=== PATIENT | female | born 1970 | race Caucasian/White ===

== ENCOUNTER 2019-04-13 10:37 | Emergency (ER) | payer MEDICAID ==
[~2019-04-13] VITALS: Ht 162 cm; Wt 93.7 kg
[~2019-04-13 10:37] MED LIST: ACHD5005 PO; AMOX500C2 PO; BENZ100C18 PO; CLIN-62 PO; CLOT45CR46 TOP; FERR-57 PO; FLC150T PO; GLIP-173; HCT25T PO; HUM100VI SC; INSU100V13 SC; LIRA0.6P SC; LIRA0.6P SQ; LISI1TAB26; MECL-124 PO; METH4TAB PO; METR500T PO; MPR22TI TP; MTF500T PO; NALT1TAB; NAPR-243 PO; NITR-65 PO; ONDAN4ODT PO; OXYC-12 PO; PHEN37.53 PO; PREN1TAB14 PO; PREN1TAB39 PO; PRM50SU RC; PROM25TA14 PO; SULF1TAB7 PO; TERB250T42 PO
--- NOTE | 2019-04-13 11:23 | ED Fall/Injury ---
General Chief Complaint: Trauma-Non Activation Stated Complaint: R KNEE PAIN AND L WRIST PAIN AFTER FALL Nursing Triage Note: STATES AROUND 5 AM SHE FELL TAKING HER DOG OUT. COMPLAINS OF RIGHT KNEE AND LEFT WRIST PAIN. Source: patient Exam Limitations: no limitations History of Present Illness Date Seen by Provider: Apr 13, 2019 Time Seen by Provider: 11:10 Initial Comments Ambulatory in to ER with reports of right anterior knee pain and left wrist pain after a fall this morning while taking that. No other injuries she does have bruising and pain to the wrist and knee. Occurred: this morning Severity: moderate Injuries/Pain Location: upper extremity, lower extremity Context: unknown Loss of Consciousness: no loss of consciousness Allergies and Home Medications Allergies Coded Allergies: NKANo Known Allergies (Unverified Allergy, Unknown, 06/14/05) Home Medications Metformin Hcl 500 Mg Tablet, 1 EACH PO BID WITH MEALS, (Reported) Promethazine HCl 25 Mg Tablet, 25 MG PO Q6H PRN for NAUSEA/VOMITING Prescribed by: PERRI MEDINA on 03/24/16 1621 Patient Home Medication List Home Medication List Reviewed: Yes Review of Systems Review of Systems Constitutional: see HPI Eyes: No Symptoms Reported Ears, Nose, Mouth, Throat: no symptoms reported Respiratory: no symptoms reported Cardiovascular: no symptoms reported Genitourinary: no symptoms reported Musculoskeletal: see HPI Skin: no symptoms reported Psychiatric/Neurological: No Symptoms Reported Past Areaxtq-Jkzfoe-Cgoqgu Hx Patient Social History Alcohol Use: Denies Use Recreational Drug Use: No Smoking Status: Never a Smoker Recent Foreign Travel: No Contact w/Someone Who Travel: No Recent Infectious Disease Expo: No Recent Hopitalizations: No Past Medical History Surgeries: Yes (FAT TISSUE REMOVAL R SIDE 2000, 3 C-SECTIONS) Section Respiratory: No Cardiac: Yes Hypertension Neurological: No Reproductive Disorders: No Sexually Transmitted Disease: No HIV/AIDS: No Gastrointestinal: No Musculoskeletal: No Endocrine: Yes Diabetes, Non-Insulin dep Cancer: No Psychosocial: No Integumentary: No Blood Disorders: No Physical Exam Vital Signs Vital Signs - First Documented 04/13/19 11:05 Temp 37.0 Pulse 77 Resp 16 B/P (MAP) 110/77 (88) Pulse Ox 99 O2 Delivery Room Air Capillary Refill : Less Than 3 Seconds Height, Weight, BMI Height: 5'6" Weight: 239lbs. oz. [id number]; 35.00 BMI Method:Stated General Appearance: WD/WN, no apparent distress HEENT: PERRL/EOMI, normal ENT inspection Neck: non-tender Respiratory: no respiratory distress, no accessory muscle use Gastrointestinal: normal bowel sounds, soft Extremities: normal range of motion, other (bruising to volar left wrist, half dollar sized bruising right anterior knee. ) Neurologic/Psychiatric: alert, normal mood/affect, oriented x 3 Skin: normal color, warm/dry [place] Coma Score Best Eye Response: (4) Open Spontaneously Best Verbal Response: (5) Oriented Best Motor Response: (6) Obeys Commands Tangela Total: 15 Progress/Results/Core Measures Results/Orders My Orders Orders - RHONA GONZALEZ APRN Knee, Right, 3 Views (04/13/19 11:19) Wrist, Left, 3 Views Or More (04/13/19 11:19) Vital Signs/I&O 04/13/19 11:05 Temp 37.0 Pulse 77 Resp 16 B/P (MAP) 110/77 (88) Pulse Ox 99 O2 Delivery Room Air Blood Pressure Mean: 88 Departure Impression Primary Impression: Contusion Disposition: 01 HOME, SELF-CARE Condition: Stable Departure-Patient Inst. Decision time for Depature: 11:41 Referrals: [facility] (PCP/Family) Primary Care Physician Patient Instructions: Contusion (DC) Add. Discharge Instructions: 1. Return to ER for any concerns such as increasing pain or fevers. Follow up with your doctor next week. tylenol and motrin for pain. All discharge instructions reviewed with patient and/or family. Voiced understanding. RHONA GONZALEZ APRN Apr 13, 2019 11:23
--- NOTE | 2019-04-13 11:36 | Diagnostic Imaging Report ---
INDICATION: Pain post fall earlier today. TECHNIQUE: 3 views of the right knee CORRELATION STUDY: None FINDINGS: The joint spaces are maintained. The articular surfaces are smooth and preserved. There is no acute bony abnormality. There is presence mild amount of edema along the anterior aspect of the knee. IMPRESSION: 1. Negative for acute bony abnormality of the knee. Dictated by: Dictated on workstation # [id number]
--- NOTE | 2019-04-13 11:36 | Diagnostic Imaging Report ---
INDICATION: Fall earlier today with pain and bruising. History of previous fracture left wrist. TECHNIQUE: 3 views of the left wrist CORRELATION STUDY: Left hand, 12/25/2009 FINDINGS: The osseous structures of the wrist have an unremarkable appearance. Alignment is anatomic. There is no acute bony abnormality. The visualized soft tissues appearing unremarkable. IMPRESSION: 1. Negative examination of the wrist. Dictated by: Dictated on workstation # [id number]
[2019-04-13 11:52] VITALS: BP 110/77
== END 2019-04-13 11:52 | disposition home or self-care (01) ==
LOC: EDUNIT# 10:37 → ER 10:38
DX: S60.212A Contusion of left wrist, initial encounter (principal); S80.01XA Contusion of right knee, initial encounter; I10 Essential (primary) hypertension; E11.9 Type 2 diabetes mellitus without complications; R40.2142 Coma scale, eyes open, spontaneous, at arrival to emergency department; R40.2252 Coma scale, best verbal response, oriented, at arrival to emergency department; R40.2362 Coma scale, best motor response, obeys commands, at arrival to emergency department; Z79.84 Long term (current) use of oral hypoglycemic drugs; W19.XXXA Unspecified fall, initial encounter
CPT/HCPCS: 73110; 73562

== ENCOUNTER → 2019-06-14 | Outpatient (CLI) | payer MEDICAID ==
--- NOTE | 2019-06-14 10:42 | Diagnostic Imaging Report ---
PROCEDURE: US Non-ob pelvis comp/trans. TECHNIQUE: Multiple realtime grayscale images were obtained of the pelvis in various projections transabdominally and endovaginally. Transabdominal imaging was also performed. INDICATION: Abnormal uterine bleeding. COMPARISON: None FINDINGS: The uterus is normal in size measuring 8.8 x 5.1 x 5.4 cm. The endometrium measures 9 mm in thickness. There is a somewhat circumscribed hypoechoic area in the anterior myometrium measuring 2.7 x 2.6 x 2.7 cm which may represent a fibroid. Multiple nabothian cysts are present. No masses are seen in the adnexa bilaterally. The ovaries are not seen due to bowel gas. IMPRESSION: 1. Circumscribed hypoechoic region in the uterus measuring 2.7 cm, may represent a fibroid. 2. The endometrium is within normal limits for a premenopausal female. 3. The ovaries are not seen. Dictated by: Dictated on workstation # [id number]
--- NOTE | 2019-06-14 16:27 | Diagnostic Imaging Report ---
INDICATION: Routine screening. COMPARISON: No prior mammograms are available for comparison. 2-D and 3-D bilateral screening mammography was performed. The current study was also evaluated with a Computer Aided Detection (CAD) system. 3-D tomosynthesis was also performed and reviewed. FINDINGS: Both breasts are heterogeneously dense, limiting the sensitivity of mammography. There is a focal density in the central left breast on the CC view at the nipple line. Additional views of this area is recommended. This appears to be superiorly located on the MLO views. Right breast is unremarkable. No malignant-appearing microcalcifications are seen. Axillae are unremarkable. IMPRESSION: Left breast density. Additional views are recommended for further evaluation. ACR BI-RADS Category 0: Incomplete. (Needs additional imaging evaluation). Result letter will be mailed to the patient. Note: At least 10% of breast cancer is not imaged by mammography. Dictated by: Dictated on workstation # [id number]
== END ==
LOC: RAD 09:22
PROVIDERS: ATTEND Obstetrics & Gynecology
DX: Z12.31 Encounter for screening mammogram for malignant neoplasm of breast (principal); R92.8 Other abnormal and inconclusive findings on diagnostic imaging of breast; N93.8 Other specified abnormal uterine and vaginal bleeding; Z68.34 Body mass index [BMI] 34.0-34.9, adult; N88.8 Other specified noninflammatory disorders of cervix uteri
CPT/HCPCS: 76830; 76856; 77067

== ENCOUNTER → 2019-06-26 | Outpatient (CLI) | payer MEDICAID ==
--- NOTE | 2019-06-26 14:11 | Diagnostic Imaging Report ---
INDICATION: Left breast density. Patient presents for additional views. Correlation is made with recent screening study from 06/14/2019. Unilateral left 2-D and 3-D diagnostic mammography was performed with CAD. This include spot compression CC, rolled CC and 90 degree lateral views. Additional views fail to demonstrate a discrete mass. There is some mild residual density in the central left breast approximately 10 cm from the nipple. This appears to be superiorly located on the CC tomographic images and the 90 degree lateral view. No suspicious calcifications are seen. IMPRESSION: BI-RADS 0 Mild residual density in the central left breast superiorly. Further evaluation of the left breast with ultrasound is recommended and will be performed today. ACR BI-RADS Category 0: Incomplete. (Needs additional imaging evaluation). Result letter will be mailed to the patient. Note: At least 10% of breast cancer is not imaged by mammography. Dictated by: Dictated on workstation # [id number]
--- NOTE | 2019-06-26 14:45 | Diagnostic Imaging Report ---
INDICATION: Right breast density. Correlation is made with diagnostic mammogram earlier the same day and screening mammogram from 06/14/2019. Sonographic interrogation of the upper right breast 10-2 o'clock location was performed. There is a echogenic circumscribed nodule in the subcutaneous tissues at the 10:00 location measuring approximately 7 mm x 9 mm most consistent with a lipoma. No other concerning finding is seen. No mass or fluid collection is seen. IMPRESSION: BI-RADS 2 Probable small lipoma at the 10:00 location of the right breast 8 cm from the nipple. No suspicious abnormality is detected. Patient may return to routine annual screening mammography. ACR BI-RADS Category 2: Benign findings. Dictated by: Dictated on workstation # [id number]
== END ==
LOC: RAD 13:41
PROVIDERS: ATTEND Obstetrics & Gynecology
DX: N63.20 Unspecified lump in the left breast, unspecified quadrant (principal)
CPT/HCPCS: 76641

== ENCOUNTER 2019-07-25 06:59 | Outpatient (RCR) | payer MEDICAID ==
[~2019-07-25] VITALS: Ht 162.6 cm; Wt 92.3 kg
[~2019-07-25 06:59] MED LIST changes: -LISI1TAB26; +LISI1TAB26 PO
[2019-07-25] MEDS ORDERED: PIOG45TA7 PO (17:38)
[2019-07-25] MEDS ORDERED: GLIM4TAB5 PO (17:38)
[2019-07-25] MEDS ORDERED: SITA50TA PO (17:38)
[2019-07-25] MEDS ORDERED: ASCO1TAB36 PO (17:38)
[2019-07-25] MEDS ORDERED: PHEN-483 PO (17:38)
[2019-07-25] MEDS ORDERED: ZINC50TA51 PO (17:38)
[2019-07-25] MEDS ORDERED: CALC200T2 PO (17:38)
[2019-07-25] MEDS ORDERED: PEDI1TAB35 PO (17:38)
== END 2019-07-25 18:22 | disposition home or self-care (01) ==
LOC: PREOP 06:59 → EDSTATUS 10:00 → PREOP 18:22
PROVIDERS: ATTEND Obstetrics & Gynecology
DX: Z01.818 Encounter for other preprocedural examination (principal); Z11.59 Encounter for screening for other viral diseases
CPT/HCPCS: 87635

== ENCOUNTER 2020-01-02 05:35 | Outpatient (RCR) | payer MEDICAID ==
[~2020-01-02] VITALS: Ht 165 cm; Wt 93.6 kg
[~2020-01-02 05:35] MED LIST changes: +ASCO1TAB36 PO; +CALC200T2 PO; +GLIM4TAB5 PO; +HYDR-4226 PO; +PEDI1TAB35 PO; +PHEN-483 PO; +PIOG45TA7 PO; +SITA50TA PO; +ZINC50TA51 PO
[2020-01-06] MEDS ORDERED: SIME80TA16 PO (09:11)
[2020-01-06] MEDS ORDERED: DCS100C PO (09:11)
[2020-01-06] MEDS ORDERED: HYDR-34 PO (09:11)
[2020-01-06] MEDS ORDERED: IBUP-844 PO (09:11)
== END 2020-01-02 09:55 | disposition home or self-care (01) ==
LOC: PREOP 05:35
PROVIDERS: ATTEND Obstetrics & Gynecology
DX: Z01.818 Encounter for other preprocedural examination (principal); Z01.812 Encounter for preprocedural laboratory examination; D25.9 Leiomyoma of uterus, unspecified; Z20.828 Contact with and (suspected) exposure to other viral communicable diseases
CPT/HCPCS: 87635

== ENCOUNTER 2020-01-06 08:06 | Day surgery (SDC) | payer MEDICAID ==
[2020-01-06] VITALS (13 sets, daily range): BP systolic 97–116; BP diastolic 54–74
[~2020-01-06] VITALS: Ht 165 cm; Wt 93.6 kg
[2020-01-06] MEDS ORDERED: metroNIDAZOLE 500MG/100ML IVPB 100 ML IV ONE (08:15)
[2020-01-06] MEDS ORDERED: ceFAZolin 2 GM IV Premixed 50 ML IV ONE (08:15)
[2020-01-06] MEDS ORDERED: BUPIVACAINE 0.25% 30 ML (SENSORCAINE) VIAL ONE (08:16)
[2020-01-06] MEDS: LACTATED RINGERS 1,000 ML IV PRN ×2 (08:24→10:57)
[2020-01-06 08:50] LABS: BASOPHILS # (AUTO) 0.1 10^3/uL (0.0-0.1); BASOPHILS % (AUTO) 1 % (0-10); EOSINOPHILS # (AUTO) 0.2 10^3/uL (0.0-0.3); EOSINOPHILS % (AUTO) 2 % (0-10); HEMATOCRIT 38 % (35-52); HEMOGLOBIN 12.3 g/dL (11.5-16.0); LYMPHOCYTES # (AUTO) 2.3 10^3/uL (1.0-4.0); LYMPHOCYTES % (AUTO) 23 % (12-44); MEAN CORPUSCULAR HEMOGLOBIN 30 pg (25-34); MEAN CORPUSCULAR HGB CONC 32 g/dL (32-36); MEAN CORPUSCULAR VOLUME 93 fL (80-99); MEAN PLATELET VOLUME 11.1 fL (9.0-12.2); MONOCYTES # (AUTO) 0.5 10^3/uL (0.0-1.0); MONOCYTES % (AUTO) 5 % (0-12); NEUTROPHILS # (AUTO) 6.8 10^3/uL (1.8-7.8); NEUTROPHILS % (AUTO) 68 % (42-75); PLATELET COUNT 309 10^3/uL (130-400); WHITE BLOOD COUNT 9.9 10^3/uL (4.3-11.0)
--- NOTE | 2020-01-06 09:09 | Discharge Inst-Women's Service ---
Discharge Inst-Women's Serv Depart Medication/Instructions New, Converted or Re-Newed RX: RX on Chart Problems Reviewed?: Yes Consults/Follow Up Additional Follow Up: Yes Orders/Referrals Dr. Rehman in 7-10 days and in 8 weeks Activity Activity: Activity as Tolerated Driving Instructions: No Driving for 1 Week NO SMOKING: NO SMOKING Nothing Inside Vagina: No Douching, No Shambaugh, No Tampons Diet Discharge Diet: No Restrictions Symptoms to Report to : Bleeding Excessive, Pain Increased, Fever Over 101 Degrees F, Vaginal Bleeding Increase, Questions/Concerns For Any Problems or Questions: Contact Your Physician Skin/Wound Care Infection Signs and Symptoms: Increased Redness, Foul Odor of Wound, Increased Drainage, Skin Itchy or Has a Rash, Increased Swelling, Temperature Above 101 F Operative Area Clean and Dry: Keep Incision Clean/Dry Stitches/Garry/Dermabond: Dermabond, Care of Stitches Bathing Instructions: TOY Villanueva DO Jan 06, 2020 09:09
[2020-01-06] MEDS ORDERED: DCS100C PO ×2 (09:11)
[2020-01-06] MEDS ORDERED: HYDR-34 PO ×2 (09:11)
[2020-01-06] MEDS ORDERED: IBUP-844 PO ×2 (09:11)
[2020-01-06] MEDS ORDERED: SIME80TA16 PO ×2 (09:11)
[2020-01-06] MEDS ORDERED: MIDAZOLAM 2 MG/2 ML (VERSED) VIAL ONE (09:12)
[2020-01-06] MEDS ORDERED: fentaNYL INJECTION 100 MCG/2 ML AMP ONE (09:12)
[2020-01-06] MEDS ORDERED: HYDROmorphone 2 MG/ML VIAL (DILAUDID) IV PRN (09:15)
[2020-01-06] MEDS ORDERED: DOCUSATE SODIUM 100 MG (COLACE) CAP PO PRN (09:15)
[2020-01-06] MEDS ORDERED: ANTACID SUSP 30 ML UDC (MYLANTA) PO PRN (09:15)
[2020-01-06] MEDS ORDERED: ZOLPIDEM 5 MG (AMBIEN) TAB PO PRN (09:15)
[2020-01-06] MEDS ORDERED: SIMETHICONE 80 MG (MYLICON) CHEW PO PRN (09:15)
[2020-01-06] MEDS ORDERED: ONDANSETRON 4 MG/2 ML (SDV) Z0FRAN IV PRN (09:15)
[2020-01-06] MEDS ORDERED: CHLORASEPTIC LOZENGE MM PRN (09:15)
[2020-01-06] MEDS ORDERED: HYDROcodone/APAP 7.5 MG/325 MG (LORTAB, LORCET PLUS) TABLET PO PRN (09:15)
[2020-01-06] MEDS ORDERED: GLYCOPYRROLATE 0.2 MG/ML (ROBINUL) 2 ML VIAL ONE (11:22)
[2020-01-06] MEDS ORDERED: ONDANSETRON 4 MG/2 ML (SDV) Z0FRAN ONE ×2 (11:22→11:31)
[2020-01-06] MEDS ORDERED: SEVOFLURANE (ULTANE) 15 ML INHAL SOLN ONE (11:22)
[2020-01-06] MEDS ORDERED: proPOfol 200 MG/20 ML (DIPRIVAN) VIAL IV ONE (11:22)
[2020-01-06] MEDS ORDERED: ROCURONIUM 10 MG/ML 5 ML SYRINGE IV ONE (11:22)
[2020-01-06] MEDS ORDERED: LIDOCAINE PF 2% 5 ML (XYLOCAINE) VIAL ONE (11:22)
[2020-01-06] MEDS ORDERED: NEOSTIGMINE 3 MG/3 ML VIAL ONE (11:22)
[2020-01-06] MEDS ORDERED: morphine INJ 10 MG/ML 1ML (SYR OR VIAL) IVP ONE (11:30)
[2020-01-06] MEDS ORDERED: ONDANSETRON 4 MG/2 ML (SDV) Z0FRAN IVP PRN (11:30)
[2020-01-06] MEDS ORDERED: HYDROmorphone 2 MG/ML VIAL (DILAUDID) IV ONE (11:30)
[2020-01-06] MEDS ORDERED: morphine INJ 10 MG/ML 1ML (SYR OR VIAL) ONE (11:31)
[2020-01-06] MEDS ORDERED: KETOROLAC 30 MG/ML VIAL ONE (11:31)
[2020-01-06] MEDS: KETOROLAC 30 MG/ML VIAL IV PRN ×2 (11:42→17:58)
[2020-01-06] MEDS ORDERED: HYDROmorphone 2 MG/ML VIAL (DILAUDID) ONE ×2 (11:46→12:28)
--- NOTE | 2020-01-06 12:16 | NUR ---
CRISTINA DAIGLE admitted to room 3305-1 VIA PT BED ACC BY ENID MCCARTNEY STANDPIPE TENDER AFTER A ROBOTIC ASSISTED TOTAL LAPAROSCOPIC HYSTERECTOMY, BILATERAL SALPINGO-OOPHORECTOMY, AND CYSTOTOMY REPAIR TODAY BY DR. BISWAS. CRISTINA DAIGLE introduced to surroundings, call light, bed controls, phone, TV, temperature control, lights, meal times, smoking policy, visitor policy, side rail policy, bathrooms and showers. Patient Rights given to patient in the handbook.
--- NOTE | 2020-01-06 12:29 | NUR ---
DILAUDID PULLED R/T PT C/O PAIN RATED 8/10. DECISION NOT TO ADMINISTER AT THIS CHRIS R/T PT FALLING ASLEEP WHEN THIS RN IN ROOM TALKING WITH HER. WILL CONTINUE TO MONITOR.
[2020-01-06] MEDS: LACTATED RINGERS 1,000 ML IV SCH ×2 (12:58→17:27)
--- NOTE | 2020-01-06 13:20 | NUR ---
O2 STARTED AT 2L/M/NC R/T PT BEING SO DROWSY.
--- NOTE | 2020-01-06 13:30 | NUR ---
REPORT GIVEN TO PAWAN MENDEZ RN AND JACOBO TEJEDA RN.
--- NOTE | 2020-01-06 13:55 | NUR ---
RN's to room to introduce self and inform pt of staff change. Pt sleeping soundly, no s/s of distress. Will continue to monitor and will return for assessment.
--- NOTE | 2020-01-06 14:20 | NUR ---
Pt S.O. called to unit for update. S.O. informed pt doing well, but still drowsy. S.O. inquiring when he can come to visit, explained current visiting guidelines related to COVID-19. S.O. disgruntled at this time, but cooperative. S.O. requests RN give pt her personal phone so he can call her. RN to room after phone call, personal phone given to pt and pt notified called. Pt still drowsy at this time. No concerns or needs voiced.
--- NOTE | 2020-01-06 15:40 | NUR ---
RT notified of need for IS instruction
--- NOTE | 2020-01-06 16:40 | NUR ---
Dr Rehman notified of decreased urine output. Order rec'd for 500ml fluid bolus
[2020-01-06] MEDS ORDERED: FUROSEMIDE 40 MG/4 ML INJ (LASIX) IVP ONE (18:15)
--- NOTE | 2020-01-06 18:15 | NUR ---
Dr. Rehman notified of continued decreased output. Order rec'd for 1x dose 10mg lasix IV
--- NOTE | 2020-01-06 19:30 | NUR ---
forest nursery supervisor notifying this RN that pt S.O. is requesting a phone call with an update on pt status. This RN called S.O. and updated him on current status. All questions and concerns answered at this time.
--- NOTE | 2020-01-06 22:00 | NUR ---
RN to room, pt awake and watching TV. edwards cath to DD. VSS, pt belching at this time. Denies pain or need for antacid, fresh ice water given and ice pack given to place on lower abdomen. Plan of care reviewed.
[2020-01-07] MEDS: LACTATED RINGERS 1,000 ML IV SCH (00:37)
[2020-01-07] MEDS: KETOROLAC 30 MG/ML VIAL IV PRN (00:38)
[2020-01-07 00:45] VITALS: BP 103/64
--- NOTE | 2020-01-07 02:01 | OPERATIVE REPORT ---
DATE OF SERVICE: 01/06/2020 PREOPERATIVE DIAGNOSES: 1. A 49-year-old female with abnormal uterine bleeding. 2. Fibroid uterus. POSTOPERATIVE DIAGNOSES: 1. A 49-year-old female with abnormal uterine bleeding. 2. Fibroid uterus. PROCEDURE: Robotic-assisted total laparoscopic hysterectomy with bilateral salpingo-oophorectomy greater than 250 grams. Incidental cystotomy repair SURGEON: Cal Rehman DO BRUSH STAINER: Maria Teresa Mendez DNP, who was necessary for manipulation and retraction of the procedure. ANESTHESIA: General endotracheal. ESTIMATED BLOOD LOSS: Minimal. URINE OUTPUT: 25 mL clear at the end of procedure. FLUIDS: 1400 mL lactated Ringer's solution. FINDINGS: A bulky enlarged uterus with grossly normal appearing fallopian tubes and ovaries. Dense anterior vesicouterine peritoneum scarring with evidence of four prior C-sections. SPECIMEN SENT: Uterus, bilateral fallopian tubes and ovaries. INDICATIONS FOR PROCEDURE: This 49-year-old female is a patient who had tried more conservative measures to manage her heavy abnormal uterine bleeding. She had been diagnosed with fibroid uterus. Due to failure of more conservative measures, the patient was opting to move forward with more definitive measures. Risk of hysterectomy was reviewed with the patient in detail including risk of bleeding, infection, damage to surrounding structures including, but not limited to bowel, bladder, ureter, kidneys, possible need for reoperation, postoperative complications that may occur, recovery timeframe, risk from anesthesia and even . After everything was discussed with the patient in detail, consent was obtained in the preoperative area and the patient was taken to the operating room. OPERATIVE REPORT IN DETAIL: Once in the operating room, anesthesia was found to be adequate. She was placed in dorsal lithotomy position, prepped and draped in normal sterile fashion. Timeout was performed. A Hampton catheter was placed in sterile technique. Weighted speculum was inserted to the patient's vagina. Right angle retractor was used to visualized the cervix, which was grasped at 12 o'clock position using a long Allis clamp. An 0 Vicryl suture was then placed through the anterior lip of the cervix and the Allis clamp was removed. The suture was then used as my retraction point. I then gently sound the uterine cavity, depth was found to be approximately 8 cm. I selected 8 cm Caty uterine manipulator tip and a 4 cm colpotomy ring, advanced the manipulator tip into the uterus, deploying the balloon and advanced colpotomy ring around the vaginal fornix after which bimanual manipulation is appreciated on bimanual exam. I removed all the other instruments from the patient's vagina, performed a change of gloves and took my attention to the abdomen where infraumbilically I infiltrated this area using 0.25% Marcaine and make an 8 mm incision with a knife and directed Veress needle through the incision until intraperitoneal placement was confirmed using saline drop test. An opening pressure of 5 mmHg was noted. I proceeded to maximum pressure of 15 mmHg, at which point I removed the Veress needle and introduced an 8 mm blunt laparoscopic da Trevor camera trocar. Once this was in place, I am able to confirm intraperitoneal placement using da Trevor laparoscope. There was no evidence of damage upon my entry site. I then had the patient placed in steep Trendelenburg. I am able to visualize all my pelvic anatomy in my findings above. I then placed two lateral trocars under direct visualization of the laparoscope. These were both 8 mm trocars, approximately 8 cm lateral to my infraumbilical trocar. Once the trocars were in place under direct visualization of laparoscope, the da Trevor robot was brought in and docked in appropriate fashion. Placing the vessel sealer in the left hand and monopolar yulia in the right hand, I performed the following dissection bilaterally. Starting the infundibulopelvic ligament, I bipolar cauterized and transected using the vessel sealer. I then grasped the round ligament, bipolar cauterized and transected this using the vessel sealer, carried this dissection down the broad ligament until the lower uterine segment is encountered at which point I the anterior and posterior leaflets of the broad ligament. Anterior leaflet was taken around the anterior vaginal fornix, posterior leaflet was taken around the posterior vaginal fornix. This allows me to skeletonize the uterine vessels laterally, which I then bipolar cauterized and transected using vessel sealer. Taking down the anterior reflection of the vesicouterine peritoneum encounters the luminal surface of the bladder, but I am able to perform a colpotomy after I am able to take the bladder away from my dissection plane. Then the colpotomy was placed at 12 o'clock position and the colpotomy ring was encountered, colpotomy was extended around vaginal fornix, amputating the cervix away from the vagina. The cervix, uterus, bilateral fallopian tubes and ovaries were removed from the vagina at that point. I then closed the lateral vaginal apices of the vaginal cuff using 2-0 Vicryl suture in a [id number] fashion, colposuspending the uterosacral ligaments. I then closed the remainder of the vaginal cuff using 2-0 V-Loc in a running fashion, after which there was no active bleeding noted from any of my dissection planes. I then proceeded with closing the cystotomy using 3-0 Vicryl suture in a running fashion. A second layer of imbricating 3-0 Vicryl suture was placed to reinforce the bladder repair. I then undocked the da Trevor robot and proceeded with remainder of the case laparoscopically. I copiously irrigated the pelvis once again using normal saline. There was no active bleeding noted from any of my dissection planes. I placed FloSeal hemostatic agent over all my planes of dissection to ensure excellent postoperative hemostasis and have the patient taken out of steep Trendelenburg. I then removed the lateral trocars under direct visualization of laparoscope. The infraumbilical trocars left in place to release insufflation and to introduce 10 mL of 0.25% Marcaine into the peritoneal cavity for postoperative pain management. I then removed this trocar as well. The skin reapproximated using 4-0 Monocryl in interrupted subcuticular stitches. Dermabond was applied to the incisions and Band-Aids were placed over this. Two grams of Ancef, 500 mg of Flagyl were given preoperatively for infection prophylaxis. The patient tolerated the procedure well and sent to recovery area in stable condition. Lap and sponge counts were correct at the end of the procedure. Instrument counts correct as well. Hampton catheter is ordered to stay in place until 1 week postoperatively where cystogram can confirm appropriate healing of the bladder. Job ID: [id number] DocumentID: [id number] Dictated Date: 01/06/2020 14:30:23 Trace Evidence Technician Date: 01/07/2020 01:06:46 Dictated By: DO DEVORAH VIDES
[2020-01-07] MEDS: IBUPROFEN 600 MG (MOTRIN) TAB PO SCH ×2 (04:34→09:30)
[2020-01-07 05:04] VITALS: BP 97/60
--- NOTE | 2020-01-07 07:51 | NUR ---
Dr. Rehman here to see patient. New orders received.
--- NOTE | 2020-01-07 09:17 | NUR ---
AM shift assessment completed and vital signs obtained, see interventions. Plan of care reviewed. Patient verbalizes understanding and questions answered. Scheduled Smith and Kathleen PO given. Addendum: 01/07/20 at 1115 by JEANETH MATUTE RN Time should be 0926.
[2020-01-07 09:26] VITALS: BP 95/53
--- NOTE | 2020-01-07 09:59 | Anesthesia-General Post-Op ---
General Patient Condition Mental Status/LOC: Same as Preop Cardiovascular: Satisfactory Nausea/Vomiting: Absent Respiratory: Satisfactory Pain: Controlled Complications: Absent Post Op Complications Complications None Follow Up Care/Instructions Patient Instructions None needed. Anesthesia/Patient Condition Patient Condition Patient is doing well, no complaints, stable vital signs, no apparent adverse anesthesia problems. No complications reported per nursing. DENI BRADY CRNA Jan 07, 2020 09:59
--- NOTE | 2020-01-07 11:30 | NUR ---
Visited with patient about edwards catheter care and changing to leg bag for daily use. Gave handouts with explanation of the procedure. Step by step instructions/demonstration on how to change from the edwards drainage bag to the leg bag and vice versa completed. Discussed signs/symptoms of UTI, ways to prevent, and when to call the doctor. Supplies provided to patient for home use. Patient verbalizes understanding and denies any current questions or concerns at this time.
--- NOTE | 2020-01-07 11:58 | NUR ---
Discharge instructions and medications reviewed with patient both written and verbally. Patient verbalizes understanding and questions answered. Written prescriptions given to the patient.
--- NOTE | 2020-01-07 12:15 | NUR ---
Patient discharged at this time via wheelchair and accompanied down to awaiting private vehicle by this RN. No signs or symptoms of distress noted.
== END 2020-01-07 12:15 | disposition home or self-care (01) ==
LOC: SDC 08:06 → WS 12:20 → SDC 01-07 12:15
PROVIDERS: ATTEND Obstetrics & Gynecology
DX: D25.1 Intramural leiomyoma of uterus (principal); N84.0 Polyp of corpus uteri; N80.0 Endometriosis of uterus; N83.11 Corpus luteum cyst of right ovary; N83.8 Other noninflammatory disorders of ovary, fallopian tube and broad ligament; N73.6 Female pelvic peritoneal adhesions (postinfective); N93.9 Abnormal uterine and vaginal bleeding, unspecified; I10 Essential (primary) hypertension; E11.9 Type 2 diabetes mellitus without complications; E66.9 Obesity, unspecified; Z68.34 Body mass index [BMI] 34.0-34.9, adult; E66.01 Morbid (severe) obesity due to excess calories; Z79.899 Other long term (current) drug therapy
CPT/HCPCS: 36415; 82962; 84703; 85025; 86850; 86900; 86901; 87081; 88307

== ENCOUNTER → 2020-01-13 | Outpatient (CLI) | payer MEDICAID ==
[~2020-01-13] MED LIST changes: +DCS100C PO; +DIATRIZOATE 30% 300 ML (CYSTOGRAFIN) VIAL UR ONE; +HYDR-34 PO; +IBUP-844 PO; +SIME80TA16 PO
--- NOTE | 2020-01-13 13:16 | Diagnostic Imaging Report ---
EXAMINATION: Voiding cystourethrogram. INDICATION: Bladder injury. FINDINGS: The preliminary film is unremarkable. Reportedly, there is clinical concern regarding an injury to the bladder. Approximately 300 cc of contrast was instilled into the patient's Hampton catheter. The bladder is fairly well distended. There is no extravasation of the contrast to suggest that the bladder wall has been injured. The post void film reveals that most of the contrast has been cleared from the bladder. Subsequently, the Hampton catheter was removed. IMPRESSION: 1. There is no evidence of extravasation of the contrast to suggest an injury to the bladder wall.. 2. The Hampton catheter has been removed. 3. These results were discussed with Dr. Cal Rehman. Dictated by: Dictated on workstation # [id number]
== END ==
LOC: RAD 11:30
PROVIDERS: ATTEND Obstetrics & Gynecology
DX: S37.20XA Unspecified injury of bladder, initial encounter (principal); Z46.6 Encounter for fitting and adjustment of urinary device; X58.XXXA Exposure to other specified factors, initial encounter
CPT/HCPCS: 74455

== ENCOUNTER 2021-08-20 06:17 | Emergency (ER) | payer MEDICAID ==
[~2021-08-20] VITALS: Ht 165 cm; Wt 97.0 kg
[~2021-08-20 06:17] MED LIST changes: -DCS100C PO; -DIATRIZOATE 30% 300 ML (CYSTOGRAFIN) VIAL UR ONE; +DOCU-239 PO; -LISI1TAB26 PO; +LISI1TAB48 PO
[2021-08-20] MEDS ORDERED: ACETAMINOPHEN 500 MG TAB (TYLENOL) PO ONE (06:45)
[2021-08-20 06:46] LABS: BASOPHILS # (AUTO) 0.1 10^3/uL (0.0-0.1); BASOPHILS % (AUTO) 1 % (0-10); EOSINOPHILS # (AUTO) 0.3 10^3/uL (0.0-0.3); EOSINOPHILS % (AUTO) 3 % (0-10); HEMATOCRIT 35 % (35-52); HEMOGLOBIN 11.6 g/dL (11.5-16.0); LYMPHOCYTES # (AUTO) 2.7 10^3/uL (1.0-4.0); LYMPHOCYTES % (AUTO) 28 % (12-44); MEAN CORPUSCULAR HEMOGLOBIN 30 pg (25-34); MEAN CORPUSCULAR HGB CONC 33 g/dL (32-36); MEAN CORPUSCULAR VOLUME 90 fL (80-99); MEAN PLATELET VOLUME 11.6 fL (9.0-12.2); MONOCYTES # (AUTO) 0.8 10^3/uL (0.0-1.0); MONOCYTES % (AUTO) 8 % (0-12); NEUTROPHILS # (AUTO) 5.8 10^3/uL (1.8-7.8); NEUTROPHILS % (AUTO) 60 % (42-75); PLATELET COUNT 280 10^3/uL (130-400); WHITE BLOOD COUNT 9.6 10^3/uL (4.3-11.0)
--- NOTE | 2021-08-20 06:47 | ED Lower Extremity ---
General Chief Complaint: Lower Extremity Stated Complaint: LEFT FOOT PAIN,SWOLLEN & HURTS Nursing Triage Note: PT PRESENTS WITH C/O LEFT FOOT AND ANKLE PAIN X2DAYS. DENIES KNOWN INJURY. LEFT FOOT IS SWOLLEN AND PAINFUL TO THE TOUCH. Source: patient Exam Limitations: no limitations History of Present Illness Date Seen by Provider: August 20, 2021 Time Seen by Provider: 06:22 Initial Comments 51-year-old female with past medical history of diabetes and hypertension coming in due to left lower leg pain. Its been going on for roughly 2 days. She says it slightly swollen, and slightly more red compared to the other side. She says it is painful to touch, better when not moving it. The pain is moderate, throbbing, constant. She has not tried anything for the pain as of yet. She has never had pain like this before. Denies any trauma, prior history of DVT or PE, fever, chest pain, shortness of breath, abdominal pain, nausea, vomiting, diarrhea, weakness, numbness, or any other concerns. Has not had any recent surgery, long travel, hemoptysis, and does not take any hormone therapy. Allergies and Home Medications Allergies Coded Allergies: NSAIDS (Non-Steroidal Anti-Inflamma (Verified Allergy, Unknown, 08/20/21) Patient Home Medication List Home Medication List Reviewed: Yes Calcium Citrate (Calcitrate) 200 Mg Tablet, 2 TAB PO DAILY, (Reported) Entered as Reported by: DANA TONY on 07/25/191737 Cephalexin (Cephalexin) 500 Mg Tablet, 500 MG PO TID Prescribed by: EUN ARCE on 08/20/21 0742 Docusate Sodium (Dok) 100 Mg Capsule, 100 MG PO BID PRN for CONSTIPATION-1ST LINE Prescribed by: TOY BISWAS on 01/06/20 0911 Doxycycline Hyclate (Doxycycline Hyclate) 100 Mg Tablet, 100 MG PO BID Prescribed by: EUN ARCE on 08/20/21 0742 Glimepiride (Glimepiride) 4 Mg Tablet, 2 MG PO DAILY, (Reported) Entered as Reported by: DANA TONY on 07/25/191737 Hydrocodone Bit/Acetaminophen (HYDROcodone/APAP 7.5/325 TAB) 1 Ea Tablet, 2 EA PO Q6H PRN for Pain-See Instructions Prescribed by: TOY BISWAS on 01/06/20 0911 Hydrocodone/Acetaminophen (Hydrocodone-Acetamin 5-325 mg) 5 Mg-325 Mg Tablet, 1 TAB PO Q8H PRN for PAIN-MODERATE (5-7) Prescribed by: EUN ARCE on 08/20/21 0742 Ibuprofen (Ibu) 600 Mg Tablet, 600 MG PO Q6H Prescribed by: TOY BISWAS on 01/06/20 0911 Lisinopril/Hydrochlorothiazide (Lisinopril-Hctz 20-25 mg Tab) 1 Each Tablet, 1 TAB PO DAILY, (Reported) Entered as Reported by: HOLLI EWING on 03/24/16 1331 Pediatric Multivit Comb. No.49 (Flintstones Gummies) 1 Each Tab.chew, 2 EACH PO DAILY, (Reported) Entered as Reported by: DANA TONY on 07/25/19 173 Phentermine HCl (Phentermine HCl) 37.5 Mg Capsule, 37.5 MG PO DAILY PRN PRN for appeitite suppressant, (Reported) Entered as Reported by: DANA TONY on 07/25/191737 Pioglitazone HCl (Actos) 45 Mg Tablet, 22.5 MG PO DAILY, (Reported) Entered as Reported by: DANA TONY on 07/25/191737 Simethicone (Simethicone) 80 Mg Tab.chew, 40 MG PO TID PRN for INDIGESTION 2ND LINE Prescribed by: TOY BISWAS on 01/06/20 09 Sitagliptin Phosphate (Januvia) 50 Mg Tablet, 25 MG PO DAILY, (Reported) Entered as Reported by: DANA TONY on 07/25/191737 Zinc Amino Acid Chelate (Zinc) 50 Mg Tablet, 50 MG PO DAILY, (Reported) Entered as Reported by: DANA TONY on 07/25/191737 Review of Systems Constitutional: No chills, No fever EENTM: No blurred vision Respiratory: no symptoms reported Cardiovascular: no symptoms reported Gastrointestinal: no symptoms reported Genitourinary: no symptoms reported Musculoskeletal: muscle pain, muscle stiffness Skin: no symptoms reported Psychiatric/Neurological: No Symptoms Reported All Other Systems Reviewed Negative Unless Noted: Yes Past Jvxcibn-Mmoevm-Klqkhs Hx Patient Social History Tobacco Use?: No Substance use?: No Alcohol Use?: No Immunizations Up To Date Influenza Vaccine Up-to-Date: No; Not Current First/Initial COVID19 Vaccinat: UNKNOWN DATE Seasonal Allergies Seasonal Allergies: No Past Medical History Surgery/Hospitalization HX: CSECTION X4, HYSTERECTOMY, GASTRIC SLEEVE Surgeries: Yes (FAT TISSUE REMOVAL R SIDE, 4 C-SECTIONS, gastric sleeve, D&C) Section Respiratory: No Cardiac: Yes Hypertension Neurological: No Reproductive Disorders: No Sexually Transmitted Disease: No HIV/AIDS: No Genitourinary: No Gastrointestinal: No Musculoskeletal: No Endocrine: Yes Diabetes, Non-Insulin dep HEENT: No Cancer: No Psychosocial: No Integumentary: No Blood Disorders: No Adverse Reaction/Blood Tranf: No (N/A) Physical Exam Vital Signs Vital Signs - First Documented 08/20/21 06:37 Temp 36.7 Pulse 74 Resp 18 B/P (MAP) 115/77 (90) Pulse Ox 97 O2 Delivery Room Air Capillary Refill : Height, Weight, BMI Height: 5'6" Weight: 239lbs. oz. 108.894031cs; 35.00 BMI Method:Stated General Appearance: WD/WN, no apparent distress HEENT: PERRL/EOMI, normal ENT inspection, pharynx normal Neck: non-tender, full range of motion, supple, normal inspection Cardiovascular: regular rate, rhythm, no edema, no murmur Respiratory: chest non-tender, lungs clear, normal breath sounds, no respiratory distress, no accessory muscle use Gastrointestinal: normal bowel sounds, non tender, soft; No distended, No guarding, No rebound Ankles: right ankle non-tender, right ankle normal inspection; bilateral ankle normal range of motion, bilateral ankle no evidence of injury; left ankle soft tissue tenderness, left ankle other (Mild redness) Feet: right foot non-tender, right foot normal inspection; bilateral foot normal range of motion, bilateral foot no evidence of injury; left foot soft tissue tenderness, left foot swelling, left foot other (Mild redness, 2+ DP and PT pulses bilaterally, FER was 1) Neurologic/Tendon: normal sensation, normal motor functions, normal tendon functions Neurologic/Psychiatric: no motor/sensory deficits, alert, normal mood/affect Skin: normal color, warm/dry Lymphatic: no adenopathy Progress/Results/Core Measures Results/Orders Lab Results Laboratory Tests Test 08/20/21 06:40 Range/Units White Blood Count 9.6 4.3-11.0 10^3/uL Red Blood Count 3.85 3.80-5.11 10^6/uL Hemoglobin 11.6 11.5-16.0 g/dL Hematocrit 35 35-52 % Mean Corpuscular Volume 90 80-99 fL Mean Corpuscular Hemoglobin 30 25-34 pg Mean Corpuscular Hemoglobin Concent 33 32-36 g/dL Red Cell Distribution Width 12.8 10.0-14.5 % Platelet Count 280 130-400 10^3/uL Mean Platelet Volume 11.6 9.0-12.2 fL Immature Granulocyte % (Auto) 0 % Neutrophils (%) (Auto) 60 42-75 % Lymphocytes (%) (Auto) 28 12-44 % Monocytes (%) (Auto) 8 0-12 % Eosinophils (%) (Auto) 3 0-10 % Basophils (%) (Auto) 1 0-10 % Neutrophils # (Auto) 5.8 1.8-7.8 10^3/uL Lymphocytes # (Auto) 2.7 1.0-4.0 10^3/uL Monocytes # (Auto) 0.8 0.0-1.0 10^3/uL Eosinophils # (Auto) 0.3 0.0-0.3 10^3/uL Basophils # (Auto) 0.1 0.0-0.1 10^3/uL Immature Granulocyte # (Auto) 0.0 0.0-0.1 10^3/uL Prothrombin Time 12.8 12.2-14.7 SEC INR Comment 0.9 0.8-1.4 Activated Partial Thromboplast Time 30 24-35 SEC D-Dimer 0.55 H 0.00-0.49 UG/ML Sodium Level 140 135-145 MMOL/L Potassium Level 4.5 3.6-5.0 MMOL/L Chloride Level 105 98-107 MMOL/L Carbon Dioxide Level 24 21-32 MMOL/L Anion Gap 11 5-14 MMOL/L Blood Urea Nitrogen 41 H 7-18 MG/DL Creatinine 1.42 H 0.60-1.30 MG/DL Estimat Glomerular Filtration Rate 44 BUN/Creatinine Ratio 29 Glucose Level 205 H 70-105 MG/DL Calcium Level 9.7 8.5-10.1 MG/DL Corrected Calcium 9.6 8.5-10.1 MG/DL Total Bilirubin 0.5 0.1-1.0 MG/DL Aspartate Amino Transf (AST/SGOT) 14 5-34 U/L Alanine Aminotransferase (ALT/SGPT) 29 0-55 U/L Alkaline Phosphatase 85 40-136 U/L C-Reactive Protein High Sensitivity 1.47 H 0.00-0.50 MG/DL Total Protein 7.4 6.4-8.2 GM/DL Albumin 4.1 3.2-4.5 GM/DL My Orders Orders - EUN ARCE MD Cbc With Automated Diff (08/20/21 06:37) Comprehensive Metabolic Panel (08/20/21 06:37) Fibrin Degradation Products (08/20/21 06:37) Protime With Inr (08/20/21 06:37) Partial Thromboplastin Time (08/20/21 06:37) Us Venous Lower Ext Lt (08/20/21 06:37) Acetaminophen Tablet (Tylenol Tablet) (08/20/21 06:45) Hs C Reactive Protein (08/20/21 06:38) Foot, Left, 3 Views (08/20/21 08:30) Medications Given in ED Current Medications Medications Dose Ordered Sig/Jeannie Route Start Time Stop Time Status Last Admin Dose Admin Acetaminophen 1,000 mg ONCE ONCE PO 08/20/21 06:45 08/20/21 06:46 DC 08/20/21 06:45 1,000 MG Vital Signs/I&O 08/20/21 06:37 Temp 36.7 Pulse 74 Resp 18 B/P (MAP) 115/77 (90) Pulse Ox 97 O2 Delivery Room Air Blood Pressure Mean: 90 Progress Progress Note : Progress Note 51-year-old female with above history coming in due to left leg swelling and redness with pain. ABCs were intact and vitals were stable on presentation. Physical exam with very mildly erythematous, mildly swollen left lower extremity most apparent in the foot. She had 2+ distal pulses which were equal bilaterally. ABIs were 1 making concern for arterial issue unlikely. Physical labs were obtained including inflammatory markers and white blood cell count. Ultrasound ordered to assess for DVT. X-ray ordered and interpreted by me showing no fracture or dislocation. Labs significant for slightly elevated CRP, elevated D-dimer. Ultrasound negative for clot. We will treat this as an early developing cellulitis. Have instructed the patient if things get worse she needs to have a repeat ultrasound in the next 1 to 2 weeks, or sooner if things are rapidly getting worse. I believe she is stable for discharge with follow-up. She was sent home with strict return precautions Departure Impression Primary Impression: Left leg swelling Additional Impression: Left leg pain Disposition: HOME, SELF-CARE Condition: Stable Departure-Patient Inst. Decision time for Depature: 07:40 Referrals: [facility] (PCP/Family) Primary Care Physician Patient Instructions: Cellulitis (Skin Infection), Adult (DC) Add. Discharge Instructions: It does not appear like there is a blood clot. We will treat this like a skin infection. If things are getting worse after the next couple days of being on antibiotics, then I recommend following up with your regular doctor and getting a repeat ultrasound in the next week or so. If things are getting a lot worse and you have concerns you can always come back to the ER. Take the Tylenol as needed for pain. Scripts Hydrocodone/Acetaminophen (Hydrocodone-Acetamin 5-325 mg) 5 Mg-325 Mg Tablet 1 TAB PO Q8H PRN for PAIN-MODERATE (5-7) for 2 Days, #6 TAB Prov: EUN ARCE MD 08/20/21 Cephalexin (Cephalexin) 500 Mg Tablet 500 MG PO TID for 10 Days, #30 TAB Prov: EUN ARCE MD 08/20/21 Doxycycline Hyclate (Doxycycline Hyclate) 100 Mg Tablet 100 MG PO BID for 10 Days, #20 TAB 0 Refills Prov: EUN ARCE MD 08/20/21 Work/School Note: Work Release Form Date Seen in the Emergency Department: August 20, 2021 Return to Work: August 22, 2021 Restrictions: No Restrictions EUN ARCE MD August 20, 2021 06:47
[2021-08-20 06:57] LABS: ALBUMIN 4.1 GM/DL (3.2-4.5); POTASSIUM 4.5 MMOL/L (3.6-5.0)
[2021-08-20 06:59] LABS: CALCIUM 9.7 MG/DL (8.5-10.1)
[2021-08-20 07:00] LABS: TOTAL PROTEIN 7.4 GM/DL (6.4-8.2)
[2021-08-20 07:01] LABS: FIBRIN DEGRADATION PRODUCTS 0.55 UG/ML (0.00-0.49); INR 0.9 (0.8-1.4); PROTHROMBIN TIME PATIENT 12.8 SEC (12.2-14.7)
[2021-08-20 07:02] LABS: BILIRUBIN,TOTAL 0.5 MG/DL (0.1-1.0)
[2021-08-20 07:04] LABS: CREATININE SERUM 1.42 MG/DL (0.60-1.30)
[2021-08-20] MEDS ORDERED: ACHD5005 PO (07:42)
[2021-08-20] MEDS ORDERED: DOXY100T2 PO (07:42)
[2021-08-20] MEDS ORDERED: CEPH500T PO (07:42)
--- NOTE | 2021-08-20 07:59 | Diagnostic Imaging Report ---
EXAMINATION: US Lower Extremity Venous Duplex Left. TECHNIQUE: Multiple real-time grayscale images were obtained over the left lower extremity in various projections. Additional spectral analysis and color Doppler duplex images were also obtained. HISTORY: Swelling COMPARISON: None available. FINDINGS: The left common femoral vein, deep femoral vein, superficial femoral vein and popliteal vein are patent with normal weston scale and doppler appearance. There is normal respiratory variation and augmentation. IMPRESSION: 1. No DVT of the left lower extremity. Dictated by: Dictated on workstation # [id number]
--- NOTE | 2021-08-20 08:51 | Diagnostic Imaging Report ---
EXAMINATION: Left foot radiographs, 3 views. COMPARISON: None. HISTORY: 51-year-old female, left foot and ankle pain. FINDINGS: There is a normal variant os navicularis. There is a bipartite medial sesamoid. There is normal variant congenital fusion of the fifth digit middle and distal phalanges. There is a small calcaneal heel spur. There is no identified acute fracture. There is no cortical or aggressive bone destruction. The joint spaces are well preserved. IMPRESSION: 1. Grossly unremarkable radiographs of the left foot. Dictated by: Dictated on workstation # [id number]
[2021-08-20 09:00] VITALS: BP 136/90
== END 2021-08-20 09:00 | disposition home or self-care (01) ==
LOC: EDUNIT# 06:17 → ER 06:20
DX: M79.605 Pain in left leg (principal); M79.89 Other specified soft tissue disorders; L53.9 Erythematous condition, unspecified; R79.82 Elevated C-reactive protein (CRP); R79.89 Other specified abnormal findings of blood chemistry
CPT/HCPCS: 36415; 73630; 80053; 85025; 85379; 85610; 85730; 86141